=== PATIENT | female | born 1955 | race Caucasian/White ===

== ENCOUNTER 2023-08-18 07:12 | Emergency (ER) | payer MEDICARE, MEDICAID, SELFPAY ==
--- NOTE | ~2023-08-18 | XR_ITS ---
EXAMINATION: XR ELBOW RIGHT XR ELBOW LEFT CLINICAL INFORMATION: Pain after fall COMPARISON: None TECHNIQUE: Left elbow, 3 views Right elbow, 3 views FINDINGS: Right elbow: Bones have normal alignment and joint spaces are maintained. No elbow joint effusion. No arthritic deformity, fracture or subluxation. Left elbow: Bones have normal alignment and joint spaces are maintained. No elbow joint effusion. No evidence of arthritic deformity, acute fracture or subluxation. There appears to be a 0.2 cm focus of calcification in subcutaneous tissues at the posteromedial aspect of the elbow. Also, a few very small foci of soft tissue calcification are seen in the lower aspect of the arm and proximal forearm. XR/XR elbow RT min 3V IMPRESSION: No evidence of acute osseous injury at either elbow.
--- NOTE | ~2023-08-18 | XR_ITS ---
EXAMINATION: XR ELBOW RIGHT XR ELBOW LEFT CLINICAL INFORMATION: Pain after fall COMPARISON: None TECHNIQUE: Left elbow, 3 views Right elbow, 3 views FINDINGS: Right elbow: Bones have normal alignment and joint spaces are maintained. No elbow joint effusion. No arthritic deformity, fracture or subluxation. Left elbow: Bones have normal alignment and joint spaces are maintained. No elbow joint effusion. No evidence of arthritic deformity, acute fracture or subluxation. There appears to be a 0.2 cm focus of calcification in subcutaneous tissues at the posteromedial aspect of the elbow. Also, a few very small foci of soft tissue calcification are seen in the lower aspect of the arm and proximal forearm. XR/XR elbow LT min 3V IMPRESSION: No evidence of acute osseous injury at either elbow.
--- NOTE | ~2023-08-18 | XR_ITS ---
EXAMINATION: XR ANKLE, LEFT CLINICAL INFORMATION: Pain after fall COMPARISON: None available. TECHNIQUE: AP, lateral, and mortise views of the left ankle. FINDINGS: The soft tissues are mildly swollen in the lower leg and ankle. The bones have normal alignment at the ankle and hindfoot. No acute fracture or subluxation. No overt ankle joint effusion. There appears to be a well-corticated ossicle at the tip of the fibula and small enthesophyte at the medial malleolus. The talar dome is well-positioned within the intact mortise. Small calcaneal enthesophytes. Small ossicles project dorsal to the navicular. Peripheral vascular calcifications are present. Also, there are scattered round and ovoid calcifications in the subcutaneous tissues from dystrophic calcification or old fat necrosis. XR/XR ankle LT min 3V IMPRESSION: * No evidence of acute osseous injury at the left ankle. * There is nonspecific soft tissue swelling of the lower leg and ankle.
--- NOTE | ~2023-08-18 | XR_ITS ---
EXAMINATION: XR KNEE, RIGHT CLINICAL INFORMATION: Pain after fall COMPARISON: None available. TECHNIQUE: Four views of the right knee. FINDINGS: Tricompartmental osteophyte formation. Moderate narrowing of medial tibiofemoral joint space. Small joint effusion. No acute fracture or subluxation. Small enthesophyte of the anterior tibial tubercle and likely old small focus of calcification in the distal patellar tendon near its tubercle attachment. Atherosclerotic calcification of the femoral, popliteal and lower leg arteries. An ovoid calcification in subcutaneous tissues of the posteromedial knee region is likely from old fat necrosis. XR/XR knee RT 4V IMPRESSION: * No radiographic evidence of acute osseous injury at the right knee. * Moderate tricompartmental osteoarthritis and small joint effusion of the right knee.
[2023-08-18 07:17] VITALS: BP 131/82; PULSE 80; RESP 16; TEMP 36.9; O2SAT 96; BMI 34.4
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
[2023-08-18 11:01] VITALS: BP 139/92; PULSE 66; RESP 20; O2SAT 96
[2023-08-18 11:13] VITALS: BP 139/92; PULSE 66; RESP 14; TEMP 36.6; O2SAT 96
== END 2023-08-18 11:14 | disposition home or self-care (01) ==
PROVIDERS: Emergency Provider Emergency Medicine; PCP Internal Medicine
DX: S93.402A Sprain of unspecified ligament of left ankle, initial encounter (principal); S80.01XA Contusion of right knee, initial encounter; M25.522 Pain in left elbow; M25.521 Pain in right elbow; M25.562 Pain in left knee; M25.561 Pain in right knee; W18.30XA Fall on same level, unspecified, initial encounter; Y93.9 Activity, unspecified; Y92.009 Unspecified place in unspecified non-institutional (private) residence as the place of occurrence of the external cause; Y99.9 Unspecified external cause status
CPT/HCPCS: 73080; 73564; 73610; 99282; 99283